=== PATIENT | female | born 1995 | race Caucasian/White ===

== ENCOUNTER 2024-04-12 12:24 | Emergency (ER) | payer OTHER ==
[2024-04-12 12:30] VITALS: BP 134/88; PULSE 113; RESP 18; TEMP 99.1; BMI 34.9
[2024-04-12] MEDS ORDERED: ONDANSETRON *ODT* 4 MG TABLET ONE (14:05)
[2024-04-12] MEDS ORDERED: FAMOTIDINE 20 MG TABLET ONE (14:05)
[2024-04-12] MEDS ORDERED: ALBUTEROL SO4 0.083% IH SOL 2.5 MG/3 ML VIAL.NEB. NEB ONE (14:05)
[2024-04-12] MEDS ORDERED: ACETAMINOPHEN 500 MG TABLET (FP) ONE (14:05)
[2024-04-12] MEDS: FAMOTIDINE 20 MG TABLET PO ONE (14:17)
[2024-04-12] MEDS: ONDANSETRON *ODT* 4 MG TABLET SL ONE (14:17)
[2024-04-12] MEDS: ACETAMINOPHEN 500 MG TABLET (FP) PO ONE (14:17)
[2024-04-12] MEDS: ALBUTEROL SO4 0.083% IH SOL 2.5 MG/3 ML VIAL.NEB. NEB ONE (14:17)
[2024-04-12 14:33] LABS: EPI CELLS >36 /uL (0-25.1); HCG,QUALITATIVE URINE Negative; HYALINE CASTS 2 /uL (0-3.1); PH,URINE 5.5 (5.0-8.0); URINE APPEARANCE CLEAR; URINE BACTERIA 2284 /uL (0-1359); URINE BILIRUBIN 1+ (NEGATIVE); URINE COLOR DK YELLOW; URINE GLUCOSE (UA) NEGATIVE (NEGATIVE); URINE KETONE 2+ (NEGATIVE); URINE LEUK ESTERASE TRACE (NEGATIVE); URINE NITRITE NEGATIVE (NEGATIVE); URINE PROTEIN 1+ (NEGATIVE); URINE WBC 60 /uL (0-25.8)
[2024-04-12 15:12] LABS: URINE RBC 69 /uL (0-23.9)
== END 2024-04-12 15:31 | disposition home or self-care (01) ==
LOC: JERFT 12:24
PROC: 3E0F7GC Introduction of Other Therapeutic Substance into Respiratory Tract, Via Natural or Artificial Opening (ICD-10-PCS; principal; 2024-04-12)
DX: N30.00 Acute cystitis without hematuria (principal); R11.2 Nausea with vomiting, unspecified; R05.9 Cough, unspecified; R09.81 Nasal congestion; R50.9 Fever, unspecified
CPT/HCPCS: 71046-TC-FY; 81003; 84703; 87651; 99284-25; Q0162